=== PATIENT | female | born 1965 | race African-American/Black ===

== ENCOUNTER 2017-04-16 09:09 | Emergency (ER) | payer MEDICARE, MEDICAID ==
[~2017-04-16] VITALS: Ht 165.1 cm; Wt 98.4 kg
[~2017-04-16 09:09] MED LIST: ATOR20TA PO; Aspirin PO; Atenolol PO; CLOP75TA15 PO; HYDR-3513 PO; TRIA15OI8 TP; Tramadol Hcl PO; ZET10 PO
[2017-04-16] MEDS ORDERED: KETOROLAC 30MG/ML VIAL IV STA (09:53)
[2017-04-16 10:17] LABS: BASOPHILS % 0.9 % (0.0-2.0); EOSINOPHILS % 3.1 % (0.0-5.0); HEMATOCRIT. 39.1 % (36.0-48.0); HEMOGLOBIN. 12.9 g/dL (12.0-16.0); LYMPHOCYTES % 42.3 % (20.0-50.0); MEAN CORPUSCULAR HEMOGLOBIN 27.6 pg (28.0-32.0); MEAN CORPUSCULAR VOLUME 83.8 fL (81.0-99.0); MEAN PLATELET VOLUME 7.4 fl (7.4-10.4); MONOCYTES % 6.6 % (2.0-8.0); NEUTROPHILS % 47.1 % (40.0-76.0); PLATELET 295 x1000/uL (130-400); RED BLOOD CELL COUNT 4.67 mill/uL (4.2-5.4); RED CELL DISTRIBUTION WIDTH 14.8 % (11.6-14.6)
[2017-04-16 10:27] LABS: CARBON DIOXIDE 27 mEq/L (21-32); CHLORIDE 107 mEq/L (98-107); TROPONIN I < 0.02 ng/mL (0.00-0.04)
[2017-04-16] MEDS ORDERED: DEXAMETHASONE 10 MG/ML VIAL IV ONE ×2 (10:30→13:15)
[2017-04-16] MEDS ORDERED: LORAZEPAM 2MG/ML CPJ IV ONE (10:30)
[2017-04-16 14:40] VITALS: BP 142/73
== END 2017-04-16 15:26 | disposition home or self-care (01) ==
LOC: ER 10:29
DX: M54.12 Radiculopathy, cervical region (principal); I10 Essential (primary) hypertension; E78.00 Pure hypercholesterolemia, unspecified; I25.2 Old myocardial infarction; Z79.82 Long term (current) use of aspirin; Z95.5 Presence of coronary angioplasty implant and graft; Z90.710 Acquired absence of both cervix and uterus; Z90.49 Acquired absence of other specified parts of digestive tract
CPT/HCPCS: 36415; 71010; 72125; 80053; 84484; 85025; 93005; 96374; 96375; 99285; J1100; J1885

== ENCOUNTER 2017-09-14 11:23 | Emergency (ER) | payer OTHER, MEDICAID ==
[~2017-09-14] VITALS: Ht 188 cm; Wt 99.0 kg
[2017-09-14 11:59] LABS: BASOPHILS % 0.8 % (0.0-2.0); EOSINOPHILS % 3.3 % (0.0-5.0); HEMATOCRIT. 41.6 % (36.0-48.0); HEMOGLOBIN. 13.9 g/dL (12.0-16.0); LYMPHOCYTES % 49.4 % (20.0-50.0); MEAN CORPUSCULAR HEMOGLOBIN 27.8 pg (28.0-32.0); MEAN CORPUSCULAR VOLUME 83.1 fL (81.0-99.0); MEAN PLATELET VOLUME 7.6 fl (7.4-10.4); MONOCYTES % 5.6 % (2.0-8.0); NEUTROPHILS % 40.9 % (40.0-76.0); PLATELET 307 x1000/uL (130-400); RED BLOOD CELL COUNT 5.01 mill/uL (4.2-5.4); RED CELL DISTRIBUTION WIDTH 15.1 % (11.6-14.6)
[2017-09-14 12:01] LABS: CHLORIDE 106 mEq/L (98-107)
[2017-09-14 12:04] LABS: PARTIAL THROMBOPLASTIN TIME 29.1 sec (23.4-31.0); PROTHROMBIN TIME 10.3 sec (9.4-11.6)
[2017-09-14 12:38] LABS: CLARITY URINE CLEAR (CLEAR); COLOR URINE YELLOW (YELLOW); KETONES URINE NEGATIVE (NEGATIVE); LEUKOCYTE ESTERASE URINE 1+ (NEGATIVE); NITRITE URINE POSITIVE (NEGATIVE); OCCULT BLOOD URINE NEGATIVE (NEGATIVE); PROTEIN URINE NEGATIVE (NEGATIVE); SPECIFIC GRAVITY URINE 1.019 (1.005-1.030); UROBILINOGEN URINE 0.2 E.U./dL (0.2-1.0)
[2017-09-14] MEDS ORDERED: KETOROLAC 60MG/2ML VIAL IM ONE (13:00)
[2017-09-14] MEDS ORDERED: MORPHINE SULFATE 10 MG/ML CPJ IM ONE (15:30)
[2017-09-14 16:45] VITALS: BP 133/85
== END 2017-09-14 16:50 | disposition home or self-care (01) ==
LOC: ER 12:13
DX: R07.89 Other chest pain (principal); F17.200 Nicotine dependence, unspecified, uncomplicated; E78.00 Pure hypercholesterolemia, unspecified; I10 Essential (primary) hypertension; I25.2 Old myocardial infarction; Z79.82 Long term (current) use of aspirin; Z88.6 Allergy status to analgesic agent; Z91.011 Allergy to milk products; Z91.018 Allergy to other foods; Z91.013 Allergy to seafood; Z95.5 Presence of coronary angioplasty implant and graft
CPT/HCPCS: 36415; 71045; 80053; 81003; 83690; 83880; 84484; 85025; 85610; 85730; 93005; 96372; 99285; J1885; J2270

== ENCOUNTER → 2018-05-25 | Outpatient (CLI) | payer MEDICARE, MEDICAID | END | disposition home or self-care (01) | LOC: LAB 14:34 | PROVIDERS: ATTEND Surgery | DX: N64.52 Nipple discharge (principal) | CPT/HCPCS: 88173 ==

== ENCOUNTER 2019-04-19 02:14 | Emergency (ER) | payer MEDICARE, MEDICAID ==
[~2019-04-19] VITALS: Ht 167.6 cm; Wt 95.3 kg
[~2019-04-19 02:14] MED LIST changes: +EZET10TA13 PO; -ZET10 PO
[2019-04-19 04:38] VITALS: BP 154/95
== END 2019-04-19 04:38 | disposition home or self-care (01) ==
LOC: ER 02:14
DX: B37.9 Candidiasis, unspecified (principal); R21 Rash and other nonspecific skin eruption; I10 Essential (primary) hypertension; E78.00 Pure hypercholesterolemia, unspecified; F17.200 Nicotine dependence, unspecified, uncomplicated; Z91.013 Allergy to seafood; Z91.018 Allergy to other foods; Z91.011 Allergy to milk products; Z79.899 Other long term (current) drug therapy
CPT/HCPCS: 99283

== ENCOUNTER 2019-07-01 08:54 | Emergency (ER) | payer MEDICARE, MEDICAID ==
[~2019-07-01] VITALS: Ht 167.6 cm; Wt 100.0 kg
[2019-07-01] MEDS ORDERED: KETOROLAC 15MG/ML VIAL IV ONE (11:45)
[2019-07-01] MEDS ORDERED: DIPHENHYDRAMINE 50MG/ML VIAL IV ONE (11:45)
[2019-07-01 12:08] LABS: CLARITY URINE CLOUDY (CLEAR); COLOR URINE YELLOW (YELLOW); KETONES URINE NEGATIVE (NEGATIVE); LEUKOCYTE ESTERASE URINE 1+ (NEGATIVE); NITRITE URINE POSITIVE (NEGATIVE); OCCULT BLOOD URINE NEGATIVE (NEGATIVE); PH URINE 5.5 (4.5-8.0); PROTEIN URINE TRACE (NEGATIVE); SPECIFIC GRAVITY URINE 1.021 (1.005-1.030); UROBILINOGEN URINE 0.2 E.U./dL (0.2-1.0)
[2019-07-01] MEDS ORDERED: CEFTRIAXONE 1 G PREMIX 50 ML IV ONE (12:15)
[2019-07-01 12:17] LABS: CHLORIDE 110 mEq/L (98-107)
[2019-07-01 12:19] LABS: PROTHROMBIN TIME 9.9 sec (9.6-11.0)
[2019-07-01 12:23] LABS: BASOPHILS % 0.7 % (0.0-2.0); EOSINOPHILS % 5.9 % (0.0-5.0); HEMATOCRIT. 38.6 % (36.0-48.0); HEMOGLOBIN. 12.8 g/dL (12.0-16.0); LYMPHOCYTES % 38.7 % (20.0-50.0); MEAN CORPUSCULAR HEMOGLOBIN 27.9 pg (28.0-32.0); MEAN CORPUSCULAR VOLUME 84.1 fL (81.0-99.0); MEAN PLATELET VOLUME 7.3 fl (7.4-10.4); MONOCYTES % 7.2 % (2.0-8.0); NEUTROPHILS % 47.5 % (40.0-76.0); PLATELET 363 x1000/uL (130-400); RED BLOOD CELL COUNT 4.59 mill/uL (4.2-5.4); RED CELL DISTRIBUTION WIDTH 14.6 % (11.6-14.6)
[2019-07-01 15:00] VITALS: BP 127/68
[2019-07-04 05:11] LABS: CHLAMYDIA TRACHOMATIS NAA Negative (Negative); NEISSERIA GONORRHOEAE NAA Negative (Negative)
== END 2019-07-01 15:01 | disposition home or self-care (01) ==
LOC: ER 08:54
DX: A59.00 Urogenital trichomoniasis, unspecified (principal); N12 Tubulo-interstitial nephritis, not specified as acute or chronic; L30.9 Dermatitis, unspecified; I10 Essential (primary) hypertension
CPT/HCPCS: 36415; 80053; 81003; 83690; 85025; 85610; 87077; 87086; 87186; 87210; 87491; 87591; 93005; 96365; 96366; 96375; 99284; J0696; J1200; J1885

== ENCOUNTER 2019-07-20 06:14 | Emergency (ER) | payer MEDICARE, MEDICAID ==
[~2019-07-20] VITALS: Ht 167.6 cm; Wt 95.0 kg
[2019-07-20] MEDS ORDERED: KETOROLAC 30MG/ML VIAL IM ONE (08:30)
[2019-07-20 09:28] LABS: CLARITY URINE CLEAR (CLEAR); COLOR URINE YELLOW (YELLOW); KETONES URINE NEGATIVE (NEGATIVE); LEUKOCYTE ESTERASE URINE NEGATIVE (NEGATIVE); NITRITE URINE NEGATIVE (NEGATIVE); OCCULT BLOOD URINE NEGATIVE (NEGATIVE); PH URINE 5.5 (4.5-8.0); PROTEIN URINE NEGATIVE (NEGATIVE); SPECIFIC GRAVITY URINE 1.016 (1.005-1.030); UROBILINOGEN URINE 0.2 E.U./dL (0.2-1.0)
[2019-07-20] MEDS ORDERED: HYDROCODONE/ACETAMINOPHEN 5/325MG TABLET PO ONE (11:45)
[2019-07-20 12:00] VITALS: BP 145/70
[2019-07-23 04:14] LABS: NEISSERIA GONORRHOEAE NAA Negative (Negative)
== END 2019-07-20 13:15 | disposition home or self-care (01) ==
LOC: ER 06:14
DX: R10.2 Pelvic and perineal pain (principal); I10 Essential (primary) hypertension; I25.2 Old myocardial infarction; Z98.61 Coronary angioplasty status; Z88.8 Allergy status to other drugs, medicaments and biological substances; Z91.011 Allergy to milk products; Z91.013 Allergy to seafood; Z91.018 Allergy to other foods
CPT/HCPCS: 76830; 76856; 81003; 87210; 87491; 87591; 96372; 99284; J1885

== ENCOUNTER 2021-05-27 09:06 | Emergency (ER) | payer MEDICARE, MEDICAID ==
[~2021-05-27] VITALS: Ht 165.1 cm; Wt 93.0 kg
[2021-05-27 09:16] VITALS: BP 165/98
[2021-05-27] MEDS ORDERED: FAMOTIDINE 20MG TABLET PO ONE (10:15)
[2021-05-27] MEDS ORDERED: DIPH25TA62 MT (11:25)
[2021-05-27] MEDS ORDERED: FAMO20TA8 MT (11:25)
== END 2021-05-27 11:33 | disposition home or self-care (01) ==
LOC: ER 09:06
DX: R06.02 Shortness of breath (principal); Z91.013 Allergy to seafood
CPT/HCPCS: 71045; 99283

== ENCOUNTER 2021-08-07 01:55 | Emergency (ER) | payer MEDICARE, MEDICAID ==
[~2021-08-07] VITALS: Ht 167.6 cm; Wt 98.0 kg
[~2021-08-07 01:55] MED LIST changes: +DIPH25TA62 MT; +FAMO20TA8 MT
[2021-08-07 02:06] VITALS: BP 188/94
[2021-08-07] MEDS ORDERED: ACETAMINOPHEN 325MG TABLET PO ONE (02:15)
== END 2021-08-07 02:52 | disposition home or self-care (01) ==
LOC: ER 01:55
DX: I11.9 Hypertensive heart disease without heart failure (principal); R51.9 Headache, unspecified; E78.00 Pure hypercholesterolemia, unspecified; I25.10 Atherosclerotic heart disease of native coronary artery without angina pectoris; I25.2 Old myocardial infarction; Z79.82 Long term (current) use of aspirin; Z91.011 Allergy to milk products; Z91.013 Allergy to seafood; Z88.8 Allergy status to other drugs, medicaments and biological substances; Z91.018 Allergy to other foods; Z98.61 Coronary angioplasty status
CPT/HCPCS: 99282

== ENCOUNTER 2022-04-26 07:49 | Emergency (ER) | payer MEDICARE, MEDICAID ==
[~2022-04-26] VITALS: Ht 167.6 cm; Wt 75.0 kg
[2022-04-26] MEDS ORDERED: DIATR MEGLU/DIATRIZOATE SOLN 30ML PO ONE (08:30)
[2022-04-26 09:24] LABS: BASOPHILS % 0.4 % (0.0-2.0); EOSINOPHILS % 2.3 % (0.0-5.0); HEMATOCRIT. 38.4 % (36.0-48.0); HEMOGLOBIN. 12.7 g/dL (12.0-16.0); LYMPHOCYTES % 28.1 % (20.0-50.0); MEAN CORPUSCULAR HEMOGLOBIN 28.2 pg (28.0-32.0); MEAN CORPUSCULAR VOLUME 85.4 fL (81.0-99.0); MEAN PLATELET VOLUME 7.6 fl (7.4-10.4); MONOCYTES % 8.1 % (2.0-8.0); NEUTROPHILS % 61.1 % (40.0-76.0); PLATELET 300 x1000/uL (130-400); RED BLOOD CELL COUNT 4.49 mill/uL (4.2-5.4); RED CELL DISTRIBUTION WIDTH 14.9 % (11.6-14.6)
[2022-04-26 09:40] LABS: CHLORIDE 105 mEq/L (98-107)
[2022-04-26 09:48] LABS: CLARITY URINE CLEAR (CLEAR); COLOR URINE DARK YELLOW (YELLOW); KETONES URINE NEGATIVE (NEGATIVE); LEUKOCYTE ESTERASE URINE TRACE (NEGATIVE); NITRITE URINE NEGATIVE (NEGATIVE); OCCULT BLOOD URINE NEGATIVE (NEGATIVE); PROTEIN URINE NEGATIVE (NEGATIVE); SPECIFIC GRAVITY URINE 1.018 (1.005-1.030)
[2022-04-26] MEDS ORDERED: AMOX1TAB16 MT (13:58)
[2022-04-26] MEDS ORDERED: AMOXICILLIN/POTASSIUM CLAVULANATE 875/125MG TAB PO NR (14:00)
[2022-04-26 14:27] VITALS: BP 125/85
== END 2022-04-26 14:30 | disposition home or self-care (01) ==
LOC: ER 08:07
DX: K57.92 Diverticulitis of intestine, part unspecified, without perforation or abscess without bleeding (principal); I25.2 Old myocardial infarction; I10 Essential (primary) hypertension; Z91.013 Allergy to seafood; Z88.8 Allergy status to other drugs, medicaments and biological substances; Z91.018 Allergy to other foods; Z91.011 Allergy to milk products; Z88.9 Allergy status to unspecified drugs, medicaments and biological substances; Z79.899 Other long term (current) drug therapy; Z98.890 Other specified postprocedural states
CPT/HCPCS: 36415; 74177; 80053; 81003; 85025; 99285

== ENCOUNTER 2022-06-06 04:35 | Emergency (ER) | payer MEDICARE, MEDICAID ==
[~2022-06-06] VITALS: Ht 165.1 cm; Wt 73.0 kg
[~2022-06-06 04:35] MED LIST changes: +AMOX1TAB16 MT
[2022-06-06 05:02] VITALS: BP 136/80
== END 2022-06-06 09:23 | disposition left against medical advice (07) ==
LOC: ER 04:35
DX: Z53.21 Procedure and treatment not carried out due to patient leaving prior to being seen by health care provider (principal)

== ENCOUNTER 2023-09-25 06:50 | Emergency (ER) | payer MEDICARE, MEDICAID ==
[~2023-09-25] VITALS: Ht 165.1 cm; Wt 89.0 kg
[~2023-09-25 06:50] MED LIST changes: -AMOX1TAB16 MT; -Aspirin PO; -EZET10TA13 PO; +EZET10TA81 PO; +LEVO750T68 MT; +METR-167 MT
[2023-09-25 06:58] VITALS: O2SAT 100
[2023-09-25 07:19] LABS: BASOPHILS % 0.6 % (0.0-2.0); EOSINOPHILS % 2.6 % (0.0-5.0); HEMOGLOBIN. 12.3 g/dL (12.0-16.0); LYMPHOCYTES % 41.4 % (20.0-50.0); MEAN CORPUSCULAR HEMOGLOBIN 28.6 pg (28.0-32.0); MEAN CORPUSCULAR HGB CONC 33.3 g/dL (31.0-37.0); MEAN CORPUSCULAR VOLUME 85.9 fL (81.0-99.0); MEAN PLATELET VOLUME 7.5 fl (7.4-10.4); NEUTROPHILS % 48.4 % (40.0-76.0); PLATELET 266 x1000/uL (130-400); RED CELL DISTRIBUTION WIDTH 14.4 % (11.6-14.6); WHITE BLOOD COUNT 8.8 x1000/uL (4.5-11.0)
[2023-09-25 07:53] LABS: ALANINE AMINOTRANSFERASE 9 IU/L (10-49); ALBUMIN 4.7 g/dL (3.2-4.8); ASPARTATE AMINOTRANSFERASE 14 IU/L (<34); BILIRUBIN TOTAL 0.4 mg/dL (0.1-1.0); CALCIUM 9.4 mg/dL (8.7-10.4); CARBON DIOXIDE 28 mEq/L (21-32); CHLORIDE 108 mEq/L (98-107); CREATININE 0.8 mg/dL (0.6-1.0); GLUCOSE 114 mg/dL (70-105); PROTEIN TOTAL 7.9 g/dL (6.0-8.3); SODIUM 142 mEq/L (136-145); TROPONIN I HIGH SENSITIVITY 12 ng/L (3.0-34); UREA NITROGEN BLOOD 12 mg/dL (9-23)
[2023-09-25 10:42] LABS: CLARITY URINE CLOUDY (CLEAR); COLOR URINE YELLOW (YELLOW); GLUCOSE URINE NEGATIVE (NEGATIVE); KETONES URINE NEGATIVE (NEGATIVE); LEUKOCYTE ESTERASE URINE NEGATIVE (NEGATIVE); NITRITE URINE NEGATIVE (NEGATIVE); OCCULT BLOOD URINE NEGATIVE (NEGATIVE); PH URINE 5.5 (4.5-8.0); PROTEIN URINE NEGATIVE (NEGATIVE); SPECIFIC GRAVITY URINE 1.011 (1.005-1.030); UROBILINOGEN URINE 0.2 E.U./dL (0.2-1.0)
[2023-09-25 10:53] LABS: BACTERIA URINE 2+; RBC URINE 0-2 /hpf (0-2); SQUAMOUS EPITHELIAL CELL URINE 3+ /lpf (RARE/1+); WBC URINE 0-2 /hpf (0-2); YEAST URINE NONE SEEN
[2023-09-25] MEDS: MORPHINE SULFATE 4 MG/ML INJ (FOR IV/IM USE) IV ONE (12:02)
[2023-09-25] MEDS: AMLODIPINE 5MG TABLET PO ONE (13:34)
[2023-09-25] MEDS: MORPHINE SULFATE 4 MG/ML INJ (FOR IV/IM USE) IV PRN (13:34)
[2023-09-25 15:33] VITALS: BP 162/75; PULSE 92; RESP 24; TEMP 97.3
== END 2023-09-25 15:00 | disposition left against medical advice (07) ==
LOC: ER 07:05 → EDBEDREQTM 08:29 → EDBEDREQ 08:29 → ER 15:00
DX: R07.89 Other chest pain (principal); I25.10 Atherosclerotic heart disease of native coronary artery without angina pectoris; I10 Essential (primary) hypertension; I25.2 Old myocardial infarction; Z90.710 Acquired absence of both cervix and uterus; Z79.899 Other long term (current) drug therapy
CPT/HCPCS: 99285; 96374; 71045; 80053; 81003; 85025; 84484; 36415; 93005; 96376; J2270

== ENCOUNTER → 2023-10-03 | Outpatient (CLI) | payer MEDICARE, MEDICAID ==
[~2023-10-03] MED LIST changes: +AMLO10TA80 PO; +ASPI-1497 PO; +ATEN50TA PO; +ATOR-2 PO; +ATOR40TA70 PO; +DOCU-347 PO; +ERGO1250 PO; +FERR-63 PO; +LOSA50TA41 PO; +METF-414 PO; +NITR0.4T49 SL
[2023-10-03 09:06] LABS: BASOPHILS % 0.8 % (0.0-2.0); EOSINOPHILS % 2.7 % (0.0-5.0); HEMATOCRIT. 37.6 % (36.0-48.0); HEMOGLOBIN. 12.3 g/dL (12.0-16.0); LYMPHOCYTES % 41.4 % (20.0-50.0); MEAN CORPUSCULAR HEMOGLOBIN 28.1 pg (28.0-32.0); MEAN CORPUSCULAR HGB CONC 32.8 g/dL (31.0-37.0); MEAN CORPUSCULAR VOLUME 85.8 fL (81.0-99.0); MEAN PLATELET VOLUME 7.6 fl (7.4-10.4); MONOCYTES % 7.5 % (2.0-8.0); NEUTROPHILS % 47.6 % (40.0-76.0); PLATELET 272 x1000/uL (130-400); RED BLOOD CELL COUNT 4.38 mill/uL (4.2-5.4); RED CELL DISTRIBUTION WIDTH 14.8 % (11.6-14.6); WHITE BLOOD COUNT 8.7 x1000/uL (4.5-11.0)
[2023-10-03 09:24] LABS: CARBON DIOXIDE 27 mEq/L (21-32); CHLORIDE 108 mEq/L (98-107); INR 0.9; PARTIAL THROMBOPLASTIN TIME 26.9 sec (23.4-31.0); POTASSIUM 4.5 mEq/L (3.5-5.1); SODIUM 140 mEq/L (136-145)
[2023-10-03 09:25] LABS: CALCIUM 9.4 mg/dL (8.7-10.4)
[2023-10-03 09:29] LABS: CREATININE 0.9 mg/dL (0.6-1.0); GLUCOSE 112 mg/dL (70-105)
[2023-10-03 09:30] LABS: UREA NITROGEN BLOOD 13 mg/dL (9-23)
[2023-10-03 09:31] LABS: ALANINE AMINOTRANSFERASE 12 IU/L (10-49); ALBUMIN 4.8 g/dL (3.2-4.8); ASPARTATE AMINOTRANSFERASE 18 IU/L (<34)
[2023-10-03 09:32] LABS: BILIRUBIN TOTAL 0.4 mg/dL (0.1-1.0); PROTEIN TOTAL 8.1 g/dL (6.0-8.3)
[2023-10-03 09:33] LABS: THYROID STIMULATING HORMONE 0.61 uIU/mL (0.55-4.78)
[2023-10-03 10:30] LABS: CLARITY URINE CLEAR (CLEAR); COLOR URINE YELLOW (YELLOW); GLUCOSE URINE NEGATIVE (NEGATIVE); KETONES URINE NEGATIVE (NEGATIVE); LEUKOCYTE ESTERASE URINE NEGATIVE (NEGATIVE); NITRITE URINE NEGATIVE (NEGATIVE); OCCULT BLOOD URINE NEGATIVE (NEGATIVE); PH URINE 5.5 (4.5-8.0); PROTEIN URINE NEGATIVE (NEGATIVE); SPECIFIC GRAVITY URINE 1.017 (1.005-1.030); UROBILINOGEN URINE 0.2 E.U./dL (0.2-1.0)
== END | disposition home or self-care (01) ==
LOC: PVL 08:06
PROVIDERS: ATTEND Thoracic Surgery (Cardiothoracic Vascular Surgery)
DX: Z01.818 Encounter for other preprocedural examination (principal); R00.1 Bradycardia, unspecified; R94.31 Abnormal electrocardiogram [ECG] [EKG]; I25.10 Atherosclerotic heart disease of native coronary artery without angina pectoris; Z20.822 Contact with and (suspected) exposure to COVID-19
CPT/HCPCS: 36415; 71045; 80053; 81003; 83036; 83735; 84443; 85025; 86850; 86900; 87426; 93005; 93880; 94010

== ENCOUNTER 2023-11-30 16:52 | Emergency (ER) | payer MEDICARE, MEDICAID ==
[~2023-11-30] VITALS: Ht 165.1 cm; Wt 93.5 kg
[~2023-11-30 16:52] MED LIST changes: -ATOR-2 PO; -ATOR20TA PO; -Atenolol PO; -DIPH25TA62 MT; -EZET10TA81 PO; -FAMO20TA8 MT; -HYDR-3513 PO; -LEVO750T68 MT; -METR-167 MT; -TRIA15OI8 TP; -Tramadol Hcl PO
[2023-11-30 17:03] VITALS: TEMP 98.2; O2SAT 100
[2023-11-30 18:15] VITALS: BP 170/99; PULSE 60; RESP 16
[2023-11-30] MEDS: KETOROLAC 15MG/ML VIAL IM ONE (18:15)
== END 2023-11-30 21:12 | disposition home or self-care (01) ==
LOC: ER 16:52
DX: I25.2 Old myocardial infarction (principal); I10 Essential (primary) hypertension; E78.00 Pure hypercholesterolemia, unspecified; Z91.013 Allergy to seafood; Z91.09 Other allergy status, other than to drugs and biological substances; Z91.048 Other nonmedicinal substance allergy status; Z91.018 Allergy to other foods; Z91.011 Allergy to milk products; Z79.899 Other long term (current) drug therapy; Z98.890 Other specified postprocedural states
CPT/HCPCS: 99285; 70450; 96372; J1885

== ENCOUNTER 2023-12-10 11:58 | Emergency (ER) | payer MEDICARE, MEDICAID ==
[~2023-12-10] VITALS: Ht 165.1 cm; Wt 95.0 kg
[2023-12-10 12:02] VITALS: O2SAT 100
[2023-12-10 12:31] LABS: BASOPHILS % 0.4 % (0.0-2.0); HEMATOCRIT. 36.9 % (36.0-48.0); LYMPHOCYTES % 40.3 % (20.0-50.0); MEAN CORPUSCULAR HEMOGLOBIN 27.7 pg (28.0-32.0); MEAN CORPUSCULAR HGB CONC 32.5 g/dL (31.0-37.0); MEAN CORPUSCULAR VOLUME 85.3 fL (81.0-99.0); MEAN PLATELET VOLUME 7.3 fl (7.4-10.4); MONOCYTES % 6.6 % (2.0-8.0); NEUTROPHILS % 49.7 % (40.0-76.0); PLATELET 318 x1000/uL (130-400); RED BLOOD CELL COUNT 4.33 mill/uL (4.2-5.4); RED CELL DISTRIBUTION WIDTH 16.1 % (11.6-14.6); WHITE BLOOD COUNT 8.1 x1000/uL (4.5-11.0)
[2023-12-10 12:37] LABS: CHLORIDE 109 mEq/L (98-107); POTASSIUM 3.8 mEq/L (3.5-5.1); SODIUM 144 mEq/L (136-145)
[2023-12-10 12:38] LABS: CARBON DIOXIDE 29 mEq/L (21-32)
[2023-12-10 12:39] LABS: CALCIUM 9.9 mg/dL (8.7-10.4)
[2023-12-10 12:43] LABS: CREATININE 0.9 mg/dL (0.6-1.0); GLUCOSE 153 mg/dL (70-105)
[2023-12-10 12:44] LABS: UREA NITROGEN BLOOD 10 mg/dL (9-23)
[2023-12-10 12:45] LABS: TROPONIN I HIGH SENSITIVITY 9 ng/L (3.0-34)
[2023-12-10 13:40] LABS: ALANINE AMINOTRANSFERASE 15 IU/L (10-49); ALBUMIN 5.1 g/dL (3.2-4.8); ASPARTATE AMINOTRANSFERASE 18 IU/L (<34); BILIRUBIN DIRECT 0.1 mg/dL (<=3.0); BILIRUBIN TOTAL 0.5 mg/dL (0.1-1.0); PROTEIN TOTAL 7.8 g/dL (6.0-8.3)
[2023-12-10 14:37] LABS: TROPONIN I HIGH SENSITIVITY 9 ng/L (3.0-34)
[2023-12-10] MEDS: ACETAMINOPHEN 325MG TABLET PO ONE (15:38)
[2023-12-10 17:00] VITALS: BP 129/71; PULSE 61; RESP 16; TEMP 98.1
== END 2023-12-10 17:00 | disposition home or self-care (01) ==
LOC: ER 12:13
DX: R07.89 Other chest pain (principal); R06.7 Sneezing; E78.00 Pure hypercholesterolemia, unspecified; I10 Essential (primary) hypertension; I25.2 Old myocardial infarction; Z90.710 Acquired absence of both cervix and uterus; Z79.899 Other long term (current) drug therapy
CPT/HCPCS: 36415; 71045; 71250; 80048; 80076; 84484; 85025; 93005; 99285

== ENCOUNTER 2024-02-24 09:10 | Emergency (ER) | payer MEDICARE, MEDICAID ==
[~2024-02-24] VITALS: Ht 160 cm; Wt 90.0 kg
[~2024-02-24 09:10] MED LIST changes: +LEVO-65 MT; +METR-167 MT
[2024-02-24 09:31] VITALS: O2SAT 100
[2024-02-24 09:54] LABS: BASOPHILS % 0.4 % (0.0-2.0); EOSINOPHILS % 5.3 % (0.0-5.0); HEMATOCRIT. 30.1 % (36.0-48.0); HEMOGLOBIN. 9.8 g/dL (12.0-16.0); LYMPHOCYTES % 42.7 % (20.0-50.0); MEAN CORPUSCULAR HEMOGLOBIN 27.1 pg (28.0-32.0); MEAN CORPUSCULAR HGB CONC 32.5 g/dL (31.0-37.0); MEAN CORPUSCULAR VOLUME 83.5 fL (81.0-99.0); MEAN PLATELET VOLUME 7.6 fl (7.4-10.4); MONOCYTES % 7.3 % (2.0-8.0); NEUTROPHILS % 44.3 % (40.0-76.0); PLATELET 225 x1000/uL (130-400); WHITE BLOOD COUNT 6.5 x1000/uL (4.5-11.0)
[2024-02-24 11:08] LABS: CLARITY URINE CLOUDY (CLEAR); COLOR URINE YELLOW (YELLOW); GLUCOSE URINE NEGATIVE (NEGATIVE); KETONES URINE TRACE (NEGATIVE); LEUKOCYTE ESTERASE URINE 2+ (NEGATIVE); NITRITE URINE NEGATIVE (NEGATIVE); OCCULT BLOOD URINE 3+ (NEGATIVE); PROTEIN URINE 2+ (NEGATIVE); SPECIFIC GRAVITY URINE 1.022 (1.005-1.030)
[2024-02-24 11:30] LABS: SQUAMOUS EPITHELIAL CELL URINE 3+ /lpf (RARE/1+)
[2024-02-24 11:31] LABS: BACTERIA URINE 3+
[2024-02-24 11:32] LABS: RBC URINE TNTC /hpf (0-2); WBC URINE TNTC /hpf (0-2)
[2024-02-24 11:56] VITALS: TEMP 37.00296
[2024-02-24 13:48] LABS: CHLORIDE 114 mEq/L (98-107); POTASSIUM 4.1 mEq/L (3.5-5.1); SODIUM 146 mEq/L (136-145)
[2024-02-24 13:49] LABS: CALCIUM 9.4 mg/dL (8.7-10.4); CARBON DIOXIDE 28 mEq/L (21-32)
[2024-02-24 13:54] LABS: CREATININE 0.8 mg/dL (0.6-1.0); GLUCOSE 105 mg/dL (70-105); UREA NITROGEN BLOOD 8 mg/dL (9-23)
[2024-02-24] MEDS ORDERED: LEVO-65 MT (13:54)
[2024-02-24 13:56] LABS: ALANINE AMINOTRANSFERASE 8 IU/L (10-49); ALBUMIN 4.2 g/dL (3.2-4.8); ASPARTATE AMINOTRANSFERASE 13 IU/L (<34); BILIRUBIN TOTAL 0.4 mg/dL (0.1-1.0); PROTEIN TOTAL 6.8 g/dL (6.0-8.3)
[2024-02-24] MEDS ORDERED: LEVOFLOXACIN 500MG TABLET PO ONE (14:00)
[2024-02-24] MEDS: LEVOFLOXACIN 500MG TABLET PO NR (14:15)
[2024-02-24 14:21] VITALS: BP 146/81; PULSE 65; RESP 16; O2SAT 99
== END 2024-02-24 14:23 | disposition home or self-care (01) ==
LOC: ER 09:10
DX: N39.0 Urinary tract infection, site not specified (principal); E78.00 Pure hypercholesterolemia, unspecified; I10 Essential (primary) hypertension; I25.2 Old myocardial infarction; K80.20 Calculus of gallbladder without cholecystitis without obstruction; Z90.710 Acquired absence of both cervix and uterus; Z98.890 Other specified postprocedural states; Z79.899 Other long term (current) drug therapy; Z91.018 Allergy to other foods; Z91.013 Allergy to seafood; Z91.011 Allergy to milk products; Z88.8 Allergy status to other drugs, medicaments and biological substances
CPT/HCPCS: 36415; 74176; 80053; 81003; 81025; 85025; 86850; 86900; 99284

== ENCOUNTER 2024-09-08 13:48 | Emergency (ER) | payer MEDICARE, MEDICAID ==
[~2024-09-08] VITALS: Ht 177.8 cm; Wt 84.0 kg
[2024-09-08 13:56] VITALS: O2SAT 100
[2024-09-08 14:30] LABS: CLARITY URINE CLOUDY (CLEAR); COLOR URINE YELLOW (YELLOW); GLUCOSE URINE NEGATIVE (NEGATIVE); KETONES URINE NEGATIVE (NEGATIVE); LEUKOCYTE ESTERASE URINE 3+ (NEGATIVE); NITRITE URINE NEGATIVE (NEGATIVE); OCCULT BLOOD URINE 1+ (NEGATIVE); PROTEIN URINE NEGATIVE (NEGATIVE); SPECIFIC GRAVITY URINE 1.014 (1.005-1.030); UROBILINOGEN URINE 0.2 E.U./dL (0.2-1.0)
[2024-09-08 15:01] LABS: BACTERIA URINE 2+; SQUAMOUS EPITHELIAL CELL URINE 1+ /lpf (RARE/1+); WBC URINE 50-100 /hpf (0-2)
[2024-09-08 15:02] LABS: RBC URINE 0-2 /hpf (0-2)
[2024-09-08] MEDS: CEFTRIAXONE SODIUM 500MG VIAL IM ONE (16:37)
[2024-09-08] MEDS: LIDOCAINE HCL 1% 20ML VIAL INFIL ONE (16:37)
[2024-09-08] MEDS ORDERED: DOXY100T2 MT (18:23)
[2024-09-08] MEDS ORDERED: SULF1TAB48 MT (18:24)
[2024-09-08 18:41] VITALS: BP 120/82; PULSE 78; RESP 16; TEMP 37.2; O2SAT 100
== END 2024-09-08 18:43 | disposition home or self-care (01) ==
LOC: ER 14:16
DX: N93.0 Postcoital and contact bleeding (principal); Z11.3 Encounter for screening for infections with a predominantly sexual mode of transmission; E11.9 Type 2 diabetes mellitus without complications; I10 Essential (primary) hypertension; I25.2 Old myocardial infarction; Z79.02 Long term (current) use of antithrombotics/antiplatelets; Z79.82 Long term (current) use of aspirin; Z79.84 Long term (current) use of oral hypoglycemic drugs; Z79.899 Other long term (current) drug therapy; Z95.1 Presence of aortocoronary bypass graft
CPT/HCPCS: 99283; 81003; 87086; 87186; 87210; 87077; 96372; J0696; J3490

== ENCOUNTER 2024-09-26 17:28 | Inpatient (IN) | payer MEDICARE, MEDICAID ==
[~2024-09-26] VITALS: Ht 165.1 cm; Wt 100.2 kg
[~2024-09-26 17:28] MED LIST changes: -LEVO-65 MT; -METR-167 MT
[2024-09-26 17:36] VITALS: O2SAT 99
[2024-09-26 18:13] LABS: BASOPHILS % 0.5 % (0.0-2.0); EOSINOPHILS % 9.2 % (0.0-5.0); HEMATOCRIT. 33.3 % (36.0-48.0); HEMOGLOBIN. 10.8 g/dL (12.0-16.0); LYMPHOCYTES % 31.6 % (20.0-50.0); MEAN CORPUSCULAR HEMOGLOBIN 27.4 pg (28.0-32.0); MEAN CORPUSCULAR HGB CONC 32.3 g/dL (31.0-37.0); MEAN CORPUSCULAR VOLUME 84.9 fL (81.0-99.0); MEAN PLATELET VOLUME 7.6 fl (7.4-10.4); MONOCYTES % 7.1 % (2.0-8.0); NEUTROPHILS % 51.6 % (40.0-76.0); PLATELET 267 x1000/uL (130-400); RED BLOOD CELL COUNT 3.92 mill/uL (4.2-5.4); RED CELL DISTRIBUTION WIDTH 15.9 % (11.6-14.6); WHITE BLOOD COUNT 10.9 x1000/uL (4.5-11.0)
[2024-09-26 18:18] LABS: CHLORIDE 106 mEq/L (98-107); POTASSIUM 3.6 mEq/L (3.5-5.1); SODIUM 141 mEq/L (136-145)
[2024-09-26 18:19] LABS: CALCIUM 9.7 mg/dL (8.7-10.4); CARBON DIOXIDE 27 mEq/L (21-32)
[2024-09-26 18:24] LABS: CREATININE 0.9 mg/dL (0.6-1.0); GLUCOSE 126 mg/dL (70-105); UREA NITROGEN BLOOD 18 mg/dL (9-23)
[2024-09-26] MEDS: MORPHINE SULFATE 4 MG/ML INJ (FOR IV/IM USE) IV STA (18:24)
[2024-09-26 18:26] LABS: TROPONIN I HIGH SENSITIVITY 33 ng/L (3.0-34)
[2024-09-26 18:46] LABS: PROTHROMBIN TIME 10.4 sec (9.6-11.0)
[2024-09-26 20:13] LABS: TROPONIN I HIGH SENSITIVITY 34 ng/L (3.0-34)
[2024-09-27] MEDS ORDERED: DEXTROSE 50% WATER 50ML SYRINGE IV PRN
[2024-09-27] MEDS ORDERED: NITROGLYCERIN 0.4MG TABLET SL SL PRN
[2024-09-27 00:05] VITALS: BP 121/71; PULSE 71; RESP 16; TEMP 36.8
[2024-09-27] MEDS: DIPHENHYDRAMINE 50MG/ML VIAL IV PRN (05:35)
[2024-09-27] MEDS: METFORMIN HCL 500MG TABLET PO SCH (06:30)
[2024-09-27] MEDS: BLOOD SUGAR DIAGNOSTIC STRIP TEST SCH (06:32)
[2024-09-27] MEDS: INSULIN LISPRO 100 UNITS/ML SUBCUT SCH (06:33)
[2024-09-27 08:00] VITALS: BP 120/65; PULSE 65; RESP 20; TEMP 36.5; O2SAT 100
[2024-09-27] MEDS: ERGOCALCIFEROL 50000UNITS CAPSULE PO SCH (08:54)
[2024-09-27] MEDS: DOCUSATE SODIUM 100MG CAPSULE PO SCH ×2 (08:54→08:55)
[2024-09-27] MEDS: CARVEDILOL 12.5MG TABLET PO SCH (08:54)
[2024-09-27] MEDS: ASPIRIN 81MG EC TABLET PO SCH (08:55)
[2024-09-27] MEDS: AMLODIPINE 10MG TABLET PO SCH (08:55)
[2024-09-27] MEDS: CLOPIDOGREL 75MG TABLET PO SCH (08:56)
[2024-09-27] MEDS ORDERED: LOSARTAN 50 MG TABLET PO SCH (09:00)
[2024-09-27] MEDS ORDERED: ATENOLOL 50 MG TABLET PO SCH (09:00)
[2024-09-27 12:00] VITALS: BP 102/66; PULSE 71; RESP 18; TEMP 36.7; O2SAT 100
[2024-09-27] MEDS ORDERED: DIPHENHYDRAMINE 50MG CAPSULE PO PRN (14:30)
[2024-09-27 16:00] VITALS: BP 106/71; PULSE 62; RESP 20; TEMP 36.8; O2SAT 96
[2024-09-27 20:00] VITALS: BP 110/66; PULSE 80; RESP 17; TEMP 36.3; O2SAT 97
[2024-09-27] MEDS ORDERED: RANOLAZINE 500 MG TAB.SR.12H PO SCH (21:00)
[2024-09-27] MEDS ORDERED: ATORVASTATIN CALCIUM 40MG TABLET PO SCH (21:00)
[2024-09-27] MEDS: ATORVASTATIN CALCIUM 40MG TABLET PO SCH (21:32)
[2024-09-28 08:00] VITALS: BP 121/80; PULSE 67; RESP 20; TEMP 36.4; O2SAT 100
[2024-09-28] MEDS: ISOSORBIDE MONONITRATE 30MG TABLET SR 24HR PO SCH (10:33)
[2024-09-28 12:00] VITALS: BP 92/61; PULSE 74; RESP 18; TEMP 36.4; O2SAT 99
[2024-09-28] MEDS ORDERED: ISOS10TA95 PO (14:11)
== END 2024-09-28 15:38 | disposition home or self-care (01) | DRG 303 ==
LOC: ER 17:33 → 5WST 22:31 → EDBEDREQTM 22:33 → EDBEDREQ 22:33
PROVIDERS: ADMIT Internal Medicine; ATTEND Internal Medicine
DX: I25.118 Atherosclerotic heart disease of native coronary artery with other forms of angina pectoris (principal); E11.9 Type 2 diabetes mellitus without complications; E78.00 Pure hypercholesterolemia, unspecified; E66.9 Obesity, unspecified; I10 Essential (primary) hypertension; I25.2 Old myocardial infarction; Z90.710 Acquired absence of both cervix and uterus; Z95.1 Presence of aortocoronary bypass graft; Z95.5 Presence of coronary angioplasty implant and graft; Z68.36 Body mass index [BMI] 36.0-36.9, adult
CPT/HCPCS: 36415; 71045; 80048; 82962; 83036; 83880; 84484; 85025; 93005; 99285; J1200; J1815; J2270